=== PATIENT | female | born 1985 | race Two or more races ===

== ENCOUNTER 2016-06-09 23:10 | Emergency (ER) | payer OTHER ==
[~2016-06-09] VITALS: Ht 157.5 cm; Wt 70.3 kg
[~2016-06-09 23:10] MED LIST: BUTA1CAP29 PO; IBUP-1007 PO; METH-37 PO; ONDA4TAB10 SL; PROAIR HFA8.5 GM INH
--- NOTE | 2016-06-09 23:53 | PHYS DOC ---
Past Medical History Past Medical History: Asthma Past Surgical History: Appendectomy, Hysterectomy, Tonsillectomy, Other Additional Past Surgical Histo: PARTIAL HYSTERECTOMY, LYMPH NODES REMOVED IN GROIN Alcohol Use: None Drug Use: None Adult General Chief Complaint Chief Complaint: GI PROBLEM HPI HPI Patient is a 30 year old female who presents with complaints of nausea, vomiting, diarrhea, and abdominal pain. Patient states that her symptoms started yesterday. Patient has had 5-6 episodes of vomiting per day. Patient states that her pain currently is sharp and located near her belly button. Patient denies radiation of pain. Patient states that she has had multiple loose stools. Patient denies any blood in her stools. Patient has had history of hysterectomy and appendectomy. Patient rates her pain currently as 8 out of 10. Patient has not taken any medications to help with her symptoms at this time. Patient denies any sick contacts or exposure to spoiled food. Review of Systems Review of Systems Constitutional: Denies fever or chills [] Eyes: Denies change in visual acuity, redness, or eye pain [] HENT: Sore throat, denies nasal congestion [] Respiratory: Denies cough or shortness of breath [] Cardiovascular: Denies chest pain or edema [] GI: Abdominal pain, nausea, vomiting, diarrhea [] : Denies dysuria or hematuria [] Musculoskeletal: Denies back pain or joint pain [] Integument: Denies rash or skin lesions [] Neurologic: Denies headache, focal weakness or sensory changes [] Current Medications Current Medications Current Medications Medications (Trade) Dose Ordered Sig/Zhao Start Time Stop Time Status Last Admin Dose Admin Famotidine (Pepcid) 20 mg 1X ONCE 06/10/16 00:00 06/10/16 00:01 DC 06/10/16 00:08 20 MG Fentanyl Citrate 50 mcg 50 mcg PRN Q15MIN PRN 06/10/16 00:00 06/10/16 23:59 06/10/16 00:06 50 MCG Ondansetron HCl (Zofran) 4 mg 1X ONCE 06/10/16 00:00 06/10/16 00:01 DC 06/10/16 00:03 4 MG Sodium Chloride (Iv Sodium Chloride 0.9% 1000ml Bag) 1,000 ml @ 1,000 mls/hr Q1H 06/10/16 00:00 06/10/16 00:59 DC 06/10/16 00:01 1,000 MLS/HR Allergies Allergies Allergies Coded Allergies Type Severity Reaction Last Updated Verified Penicillins Allergy Intermediate tolerates Rocephin 11/28/15 Yes erythromycin base Allergy Intermediate tolerates Zithromax 11/28/15 Yes iodine Allergy Intermediate hives 11/28/15 Yes tramadol Allergy Intermediate hives 11/28/15 Yes Physical Exam Physical Exam Constitutional: Alert, afebrile, appears in mild to moderate discomfort. [] HENT: Normocephalic, atraumatic, bilateral external ears normal, oropharynx moist, no oral exudates, nose normal. [] Eyes: PERRLA, EOMI, conjunctiva normal, no discharge. [] Neck: Normal range of motion, no tenderness, supple, no stridor. [] Cardiovascular:Heart rate regular rhythm, no murmur [] Lungs & Thorax: Bilateral breath sounds clear to auscultation [] Abdomen: Bowel sounds normal, soft, tenderness to palpation in all 4 quadrants, no guarding or rebound tenderness, no masses, no pulsatile masses. [] Skin: Warm, dry, no erythema, no rash. [] Back: No tenderness, no CVA tenderness. [] Extremities: No tenderness, no cyanosis, no clubbing, ROM intact, no edema. [] Neurologic: Alert and oriented X 3, normal motor function, normal sensory function, no focal deficits noted. [] Current Patient Data Vital Signs Vital Signs Date Time Temp Pulse Resp B/P Pulse Ox O2 Delivery O2 Flow Rate FiO2 06/10/16 01:24 79 98/64 98 Room Air 06/10/16 00:06 18 06/09/16 23:31 98.5 98.5 Lab Values Laboratory Tests Test 06/09/16 22:33 06/09/16 23:27 06/09/16 23:30 POC Urine HCG, Qualitative Hcg negative (Negative) Urine Collection Type Unknown Urine Color Yellow Urine Clarity Clear Urine pH 5.5 Urine Specific Goodman 1.025 Urine Protein Negativemg/dL (NEG-TRACE) Urine Glucose (UA) Negativemg/dL (NEG) Urine Ketones (Stick) Negativemg/dL (NEG) Urine Blood Negative (NEG) Urine Nitrite Negative (NEG) Urine Bilirubin Negative (NEG) Urine Urobilinogen Dipstick 1.0mg/dL (0.2 mg/dL) Urine Leukocyte Esterase Negative (NEG) Urine RBC 0/HPF (0-2) Urine WBC Occ/HPF (0-4) Urine Squamous Epithelial Cells Many/LPF Urine Bacteria Moderate/HPF (0-FEW) Urine Mucus Mod/LPF White Blood Count 5.9x10^3/uL (4.0-11.0) Red Blood Count 4.45x10^6/uL (3.50-5.40) Hemoglobin 11.9g/dL (12.0-15.5) L Hematocrit 37.1% (36.0-47.0) Mean Corpuscular Volume 83fL (79-100) Mean Corpuscular Hemoglobin 27pg (25-35) Mean Corpuscular Hemoglobin Concent 32g/dL (31-37) Red Cell Distribution Width 12.8% (11.5-14.5) Platelet Count 170x10^3/uL (140-400) Neutrophils (%) (Auto) 46% (31-73) Lymphocytes (%) (Auto) 43% (24-48) Monocytes (%) (Auto) 8% (0-9) Eosinophils (%) (Auto) 2% (0-3) Basophils (%) (Auto) 0% (0-3) Neutrophils # (Auto) 2.7x10^3uL (1.8-7.7) Lymphocytes # (Auto) 2.6x10^3/uL (1.0-4.8) Monocytes # (Auto) 0.5x10^3/uL (0.0-1.1) Eosinophils # (Auto) 0.1x10^3/uL (0.0-0.7) Basophils # (Auto) 0.0x10^3/uL (0.0-0.2) Sodium Level 143mmol/L (136-145) Potassium Level 3.4mmol/L (3.5-5.1) L Chloride Level 104mmol/L (98-107) Carbon Dioxide Level 28mmol/L (21-32) Anion Gap 11 (6-14) Blood Urea Nitrogen 7mg/dL (7-20) Creatinine 0.6mg/dL (0.6-1.0) Estimated GFR (Cockcroft-Gault) 119.0 BUN/Creatinine Ratio 12 (6-20) Glucose Level 88mg/dL (70-99) Calcium Level 8.4mg/dL (8.5-10.1) L Total Bilirubin 0.5mg/dL (0.2-1.0) Aspartate Amino Transferase (AST) 23U/L (15-37) Alanine Aminotransferase (ALT) 30U/L (14-59) Alkaline Phosphatase 96U/L (46-116) Total Protein 7.3g/dL (6.4-8.2) Albumin 4.1g/dL (3.4-5.0) Albumin/Globulin Ratio 1.3 (1.0-1.7) Lipase 72U/L (73-393) L Laboratory Tests 06/09/16 23:30 Laboratory Tests 06/09/16 23:30 EKG EKG Not performed [] Radiology/Procedures Radiology/Procedures Two-view abdominal x-ray interpreted by me: Nonobstructive bowel gas pattern, no free air under the diaphragm [] Course & Med Decision Making Course & Med Decision Making Pertinent Labs and Imaging studies reviewed. (See chart for details) The patient was given IV Zofran, Pepcid, and fentanyl as well as IV fluids. Patient's vital signs are stable. On reevaluation, patient states that her symptoms have improved. Patient's lab work is unremarkable. Patient's symptoms appear consistent with a viral syndrome. The patient will be continued on Bentyl and Zofran for outpatient treatment with recommended follow-up in 3-5 days if symptoms are not improving with primary physician. Advised return emergency department for any worsening symptoms. Patient voiced understanding and in agreement with treatment plan. Dragon Disclaimer Dragon Disclaimer This electronic medical record was generated, in whole or in part, using a voice recognition dictation system. Departure Departure Impression: Primary Impression: Nausea & vomiting Additional Impression: Abdominal pain Disposition: 01 HOME, SELF-CARE Condition: IMPROVED Referrals: NO PCP (PCP) Patient Instructions: Abdominal Pain (Nonspecific), Nausea and Vomiting Additional Instructions: Follow-up with a primary physician in the next 3-5 days if symptoms are not improving. Return to emergency department for any worsening symptoms. Scripts Ondansetron (Zofran Odt)4 Mg Tab.rapdis1 Tab SL Q8HRS PRN NAUSEA/VOMITING #15 TAB Prov:BUNNY DELEON MD 06/10/16 Dicyclomine Hcl (Bentyl)10 Mg Capsule1 Cap PO TID #30 CAP Ref 1 Prov:BUNNY DELEON MD 06/10/16 Problem Qualifiers Primary Impression: Nausea & vomiting Vomiting type: unspecified Vomiting Intractability: non-intractable Qualified Code: R11.2 - Nausea with vomiting, unspecified Additional Impression: Abdominal pain Abdominal location: periumbilical Qualified Code: R10.33 - Periumbilical pain BUNNY DELEON MD Jun 09, 2016 23:53
[2016-06-10] MEDS ORDERED: ONDANSETRON PF 4 MG/2 ML VIAL. IV ONE
[2016-06-10] MEDS ORDERED: FAMOTIDINE 20 MG/2 ML VIAL IVP ONE
[2016-06-10] MEDS ORDERED: IV NORMAL SALINE 1000ML BAG 1,000 ML IV SCH
[2016-06-10] MEDS ORDERED: FENTANYL PF 100 MCG/2 ML VIAL. IV PRN
[2016-06-10 00:02] LABS: BASO % 0 % (0-3); EOS % 2 % (0-3); HEMATOCRIT 37.1 % (36.0-47.0); HEMOGLOBIN 11.9 g/dL (12.0-15.5); LYMPH # 2.6 x10^3/uL (1.0-4.8); LYMPH % 43 % (24-48); MEAN CORPUSCULAR HEMOGLOBIN 27 pg (25-35); MEAN CORPUSCULAR HGB CONC 32 g/dL (31-37); MEAN CORPUSCULAR VOLUME 83 fL (79-100); MONO % 8 % (0-9); NEUT % 46 % (31-73); PLATELET COUNT 170 x10^3/uL (140-400); RED BLOOD COUNT 4.45 x10^6/uL (3.50-5.40); RED CELL DISTRIBUTION WIDTH 12.8 % (11.5-14.5); WHITE BLOOD COUNT 5.9 x10^3/uL (4.0-11.0)
[2016-06-10 00:07] LABS: BILIRUBIN,URINE NEGATIVE (NEG); GLUCOSE,URINE NEGATIVE (NEG); NITRITE,URINE NEGATIVE (NEG); PH,URINE 5.5; PROTEIN,URINE NEGATIVE (NEG-TRACE)
[2016-06-10 00:12] LABS: CALCIUM 8.4 mg/dL (8.5-10.1); CREATININE 0.6 mg/dL (0.6-1.0); POTASSIUM 3.4 mmol/L (3.5-5.1)
[2016-06-10 00:17] LABS: ALBUMIN 4.1 g/dL (3.4-5.0); ALBUMIN/GLOBULIN RATIO 1.3 (1.0-1.7); TOTAL BILIRUBIN 0.5 mg/dL (0.2-1.0); TOTAL PROTEIN 7.3 g/dL (6.4-8.2)
[2016-06-10 00:22] LABS: BACTERIA,URINE MODERATE /HPF (0-FEW); RBC,URINE 0 /HPF (0-2); SQUAMOUS EPITHELIAL CELL,UR MANY /LPF; WBC,URINE OCC /HPF (0-4)
[2016-06-10] MEDS ORDERED: DICY10CA53 PO (02:02)
[2016-06-10] MEDS ORDERED: ONDA4TAB10 SL (02:03)
[2016-06-10 02:20] VITALS: BP 111/66
--- NOTE | 2016-06-10 08:46 | RAD ---
ABDOMEN SUPINE UPRIGHT Clinical Indication: abdominal pain, vomiting Comparison: None. Technique: Upright and supine views of the abdomen are obtained. Findings: No intra-abdominal free air or air-fluid levels are seen on the upright view. No dilated bowel loops are seen to suggest obstruction. Formed fecal material is seen within the colon. No definite renal calculi seen. Visual is osseous structures and surrounding soft tissues demonstrate no acute finding. Visualized lung bases are clear. IMPRESSION: Nonobstructive appearing bowel gas pattern.
== END 2016-06-10 02:23 | disposition home or self-care (01) ==
LOC: ER 23:10
DX: R11.2 Nausea with vomiting, unspecified (principal); R10.9 Unspecified abdominal pain; R19.7 Diarrhea, unspecified; J45.909 Unspecified asthma, uncomplicated; Z90.49 Acquired absence of other specified parts of digestive tract; Z88.0 Allergy status to penicillin; Z90.710 Acquired absence of both cervix and uterus; Z88.1 Allergy status to other antibiotic agents; Z91.041 Radiographic dye allergy status; Z88.5 Allergy status to narcotic agent
CPT/HCPCS: 36415; 74020; 80053; 81001; 81025; 83690; 85027; 87086; 96361; 96374; 96375; 99285; J2405; J3010; J7030; S0028

== ENCOUNTER 2016-11-30 00:08 | Emergency (ER) | payer SELFPAY ==
[~2016-11-30] VITALS: Ht 157.5 cm; Wt 68.0 kg
[~2016-11-30 00:08] MED LIST changes: +DICY10CA53 PO
[2016-11-30 00:20] VITALS: BP 109/68
--- NOTE | 2016-11-30 00:32 | PHYS DOC ---
Past Medical History Past Medical History: Asthma Past Surgical History: Appendectomy, Hysterectomy, Tonsillectomy, Other Additional Past Surgical Histo: PARTIAL HYSTERECTOMY, LYMPH NODES REMOVED IN GROIN Alcohol Use: None Drug Use: None Adult General Chief Complaint Chief Complaint: SKIN PROBLEM HPI HPI Patient is a 31 year old female presents to the emergency department with complaints of a reddened area on the right forearm. She states it began approximately one hour ago. She states she took Benadryl which seemed to make it less red. She has no complaints of pain. She has no injury. Review of Systems Review of Systems Constitutional: Denies fever or chills [] Eyes: Denies change in visual acuity, redness, or eye pain [] HENT: Denies nasal congestion or sore throat [] Respiratory: Denies cough or shortness of breath [] Cardiovascular: No additional information not addressed in HPI [] GI: Denies abdominal pain, nausea, vomiting, bloody stools or diarrhea [] : Denies dysuria or hematuria [] Musculoskeletal: Denies back pain or joint pain [] Integument: Reddened area right forearm Neurologic: Denies headache, focal weakness or sensory changes [] Endocrine: Denies polyuria or polydipsia [] Allergies Allergies Allergies Coded Allergies Type Severity Reaction Last Updated Verified Penicillins Allergy Intermediate tolerates Rocephin 11/28/15 Yes erythromycin base Allergy Intermediate tolerates Zithromax 11/28/15 Yes iodine Allergy Intermediate hives 11/28/15 Yes tramadol Allergy Intermediate hives 11/28/15 Yes Physical Exam Physical Exam Constitutional: Well developed, well nourished, no acute distress, non-toxic appearance. [] HENT: Normocephalic, atraumatic, bilateral external ears normal, oropharynx moist, no oral exudates, nose normal. [] Eyes: PERRLA, EOMI, conjunctiva normal, no discharge. [] Neck: Normal range of motion, no tenderness, supple, no stridor. [] Cardiovascular:Heart rate regular rhythm, no murmur [] Lungs & Thorax: Bilateral breath sounds clear to auscultation [] Abdomen: Bowel sounds normal, soft, no tenderness, no masses, no pulsatile masses. [] Skin: Warm, dry, no erythema, no rash. [] Back: No tenderness, no CVA tenderness. [] Extremities: Right forearm, medial distal to the elbow 4 cm area of light pink skin that is warm to touch without induration, without fluctuance, without vesicles, bullae, papules, pustules. Tender to palpate. There is a small papular lesion that appears to be an insect sting at the lateral edge of the erythema. Neurologic: Alert and oriented X 3, normal motor function, normal sensory function, no focal deficits noted. [] Psychologic: Affect normal, judgement normal, mood normal. [] EKG EKG [] Radiology/Procedures Radiology/Procedures [] Course & Med Decision Making Course & Med Decision Making Pertinent Labs and Imaging studies reviewed. (See chart for details) [] Dragon Disclaimer Dragon Disclaimer This electronic medical record was generated, in whole or in part, using a voice recognition dictation system. Departure Departure Impression: Primary Impression: Allergic reaction Disposition: 01 HOME, SELF-CARE Condition: STABLE Referrals: NO PCP (PCP) [facility] Patient Instructions: Insect Sting Allergy Additional Instructions: The counter Benadryl as labeled and is indicated for symptom management. Problem Qualifiers Primary Impression: Allergic reaction Encounter type: initial encounter Qualified Codes: T78.40XA - Allergy, unspecified, initial encounter YVONNE ECHEVARRIA APRN Nov 30, 2016 00:32
[2016-11-30] MEDS ORDERED: methylPREDNISolone ACETATE 40 MG/ML VIAL. IM ONE (00:45)
== END 2016-11-30 00:56 | disposition home or self-care (01) ==
LOC: ER 00:08
DX: T78.40XA Allergy, unspecified, initial encounter (principal); J45.909 Unspecified asthma, uncomplicated; Z88.0 Allergy status to penicillin; Z88.1 Allergy status to other antibiotic agents; Z88.5 Allergy status to narcotic agent; Z88.8 Allergy status to other drugs, medicaments and biological substances; X58.XXXA Exposure to other specified factors, initial encounter
CPT/HCPCS: 96372; 99283; J1030

== ENCOUNTER 2018-01-23 15:05 | Emergency (ER) | payer SELFPAY ==
[~2018-01-23] VITALS: Ht 157.5 cm; Wt 68.0 kg
[2018-01-23 15:36] VITALS: BP 130/59
[2018-01-23] MEDS ORDERED: predniSONE 10 MG TABLET PO ONE (16:00)
[2018-01-23] MEDS ORDERED: ALBUTEROL SULFATE 2.5 MG/3 ML NEBU. NEB ONE (16:00)
[2018-01-23] MEDS ORDERED: PRED50TA PO (16:40)
[2018-01-23] MEDS ORDERED: CYCL10TA2 PO (16:40)
[2018-01-23] MEDS ORDERED: PROAIR HFA8.5 GM INH (16:40)
--- NOTE | 2018-01-23 16:40 | PHYS DOC ---
Past Medical History Past Medical History: Asthma Past Surgical History: Appendectomy, Hysterectomy, Tonsillectomy, Other Additional Past Surgical Histo: PARTIAL HYSTERECTOMY, LYMPH NODES REMOVED IN GROIN Alcohol Use: None Drug Use: None Adult General Chief Complaint Chief Complaint: KAILYN HPI HPI Patient is a 32 year old presents to the emergency department with complaints of right shoulder pain that radiates to her back for the last 2 days. She denies any known injury states that the pain is exacerbated by movement and deep breathing. 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 She denies any numbness, weakness, or tingling of the right upper extremity. In addition, patient reports pain in her chest with deep breath and cough. She denies any fever, nausea, vomiting, diarrhea, abdominal pain, or congestion. Patient states that nothing has helped to make her pain better, she has tried taking ibuprofen. Review of Systems Review of Systems Constitutional: Denies fever or chills [] HENT: Denies nasal congestion or sore throat [] Respiratory: See history of present illness Cardiovascular: Denies palpitations, reports pain with inspiration GI: Denies abdominal pain, nausea, vomiting, or diarrhea [] Musculoskeletal: See history of present illness Integument: Denies rash or skin lesions [] Neurologic: Denies headache, focal weakness or sensory changes [] All other systems were reviewed and found to be within normal limits, except as documented in this note. Current Medications Current Medications Current Medications Medications (Trade) Dose Ordered Sig/Zhao Start Time Stop Time Status Last Admin Dose Admin Albuterol Sulfate (Ventolin Neb Soln) 2.5 mg 1X ONCE 01/23/18 16:00 01/23/18 16:01 DC 01/23/18 16:16 2.5 MG Orphenadrine Citrate (Norflex) 60 mg 1X ONCE 01/23/18 16:45 01/23/18 16:46 DC 01/23/18 16:45 60 MG Prednisone (Prednisone) 50 mg 1X ONCE 01/23/18 16:00 01/23/18 16:01 DC 01/23/18 16:05 50 MG Allergies Allergies Allergies Coded Allergies Type Severity Reaction Last Updated Verified Penicillins Allergy Intermediate tolerates Rocephin 11/28/15 Yes erythromycin base Allergy Intermediate tolerates Zithromax 11/28/15 Yes iodine Allergy Intermediate hives 11/28/15 Yes tramadol Allergy Intermediate hives 11/28/15 Yes Physical Exam Physical Exam Constitutional: Well developed, well nourished, no acute distress, non-toxic appearance. [] HENT: Normocephalic, atraumatic, bilateral external ears normal, oropharynx moist, no oral exudates, nose normal. [] Eyes: conjunctiva normal, no discharge. [] Neck: Normal range of motion, no tenderness, supple, no stridor. [] Cardiovascular:Heart rate regular rhythm, no murmur [] Lungs & Thorax: Bilateral breath sounds clear to auscultation, reproducible chest tenderness with palpation[] Skin: Warm, dry, no erythema, no rash. [] Extremities: No bony tenderness, no cyanosis, no clubbing, limited ROM R shoulder due to pain intolerance, no edema. [] Neurologic: Alert and oriented X 3, normal motor function, normal sensory function, no focal deficits noted. [] Psychologic: Affect normal, judgement normal, mood normal. [] Current Patient Data Vital Signs Vital Signs Date Time Temp Pulse Resp B/P (MAP) Pulse Ox O2 Delivery O2 Flow Rate FiO2 01/23/18 15:36 98.1 81 20 130/59 (82) 99 Room Air 98.1 EKG EKG [] Radiology/Procedures Radiology/Procedures [] Course & Med Decision Making Course & Med Decision Making Pertinent Labs and Imaging studies reviewed. (See chart for details) [] Staff Physician Addendum: I was working in the ER during the course of this patient's visit. I was available for consultation as needed, but I was not directly involved in the care of this patient. Jarrod Disclaimer Jarrod Disclaimer This electronic medical record was generated, in whole or in part, using a voice recognition dictation system. Departure Departure Impression: Primary Impression: Costochondritis, acute Additional Impression: Cervical radiculopathy, acute Disposition: 01 HOME, SELF-CARE Condition: STABLE Referrals: NO PCP (PCP) Patient Instructions: Cervical Radiculopathy, [id number], Costochondritis, [id number] Additional Instructions: Fill prescriptions and use as directed. Use the [facility] for discounted rates on your medication. Activity as tolerated Recommend a cool mist humidifier in room at bedtime. Tylenol or ibuprofen prn pain/fever. Increase clear fluids. Avoid triggers such as smoke, fragrance, dust, and pollen. May take OTC cough suppressants as needed. Follow-up with your primary care doctor if symptoms persist, return to the ER if symptoms worsen. Scripts Albuterol Sulfate (PROAIR HFA INHALER) 8.5 Gm Hfa.aer.ad 1-2 PUFF INH PRN Q6HRS PRN for SHORTNESS OF BREATH for 10 Days, #1 INHALER 0 Refills Prov: DIMA YORK APRN 01/23/18 Prednisone (PREDNISONE) 50 Mg Tablet 1 TAB PO DAILY, #5 TAB 0 Refills Prov: DIMA YORK APRN 01/23/18 Cyclobenzaprine Hcl (CYCLOBENZAPRINE HCL) 10 Mg Tablet 1 TAB PO TID PRN for PAIN for 7 Days, #21 TAB 0 Refills Prov: DIMA YORK APRN 01/23/18 Problem Qualifiers DIMA YORK APRN Jan 23, 2018 16:40 LESLI GOOD MD Jan 25, 2018 01:14
[2018-01-23] MEDS ORDERED: ORPHENADRINE CITRATE 60 MG/2 ML VIAL. IM ONE (16:45)
== END 2018-01-23 16:48 | disposition home or self-care (01) ==
LOC: ER 15:05
DX: M94.0 Chondrocostal junction syndrome [Tietze] (principal); M54.12 Radiculopathy, cervical region; J45.909 Unspecified asthma, uncomplicated; M25.511 Pain in right shoulder; Z90.89 Acquired absence of other organs; Z90.710 Acquired absence of both cervix and uterus; Z88.0 Allergy status to penicillin; Z88.5 Allergy status to narcotic agent; Z88.1 Allergy status to other antibiotic agents; Z91.041 Radiographic dye allergy status
CPT/HCPCS: 94640; 96372; 99283; J2360; J7512; J7613

== ENCOUNTER 2019-02-19 07:19 | Emergency (ER) | payer SELFPAY ==
[~2019-02-19] VITALS: Ht 157.5 cm; Wt 59.5 kg
[~2019-02-19 07:19] MED LIST changes: +ALBU2.5V8 INH; +CYCL10TA2 PO; +PRED50TA PO; -PROAIR HFA8.5 GM INH
[2019-02-19 07:22] VITALS: BP 98/55
[2019-02-19 07:57] LABS: INFLUENZA A PATIENT NEGATIVE (NEGATIVE); INFLUENZA B PATIENT NEGATIVE (NEGATIVE)
[2019-02-19] MEDS ORDERED: IPRATRPIUM/ALBUTEROL 0.5/2.5MG 3 ML NEBU. NEB ONE (08:45)
[2019-02-19] MEDS ORDERED: BENZONATATE 100 MG CAPSULE. PO ONE (08:45)
[2019-02-19] MEDS ORDERED: ALBU2.5V5 NEB (08:54)
[2019-02-19] MEDS ORDERED: BENZ100C PO (08:54)
--- NOTE | 2019-02-19 08:54 | PHYS DOC ---
Past Medical History Past Medical History: Asthma Past Surgical History: Appendectomy, Hysterectomy, Tonsillectomy, Other Additional Past Surgical Histo: PARTIAL HYSTERECTOMY, LYMPH NODES REMOVED IN GROIN Alcohol Use: Occasionally Drug Use: None Adult General Chief Complaint Chief Complaint: FLU SYMPTOM HPI HPI Patient is a 33 year old patient with history of asthma who presents with rate of flulike symptom. Patient complaining of cough and congestion, sore throat, myalgia and shortness of breath for the last 3 days. Patient had sick contacts at home. She denies vomiting and diarrhea, chest pain, . Review of Systems Review of Systems Constitutional: Denies fever or chills [] Eyes: Denies change in visual acuity, redness, or eye pain [] HENT: Reports nasal congestion and sore throat Respiratory: Reports cough and shortness of breath Cardiovascular: No additional information not addressed in HPI [] GI: Denies abdominal pain, nausea, vomiting, bloody stools or diarrhea [] : Denies dysuria or hematuria [] Musculoskeletal: Denies back pain or joint pain [] Integument: Denies rash or skin lesions [] Neurologic: Denies headache, focal weakness or sensory changes [] Endocrine: Denies polyuria or polydipsia [] All other systems were reviewed and found to be within normal limits, except as documented in this note. Current Medications Current Medications Current Medications Medications (Trade) Dose Ordered Sig/Zhao Start Time Stop Time Status Last Admin Dose Admin Albuterol/ Ipratropium (Duoneb) 3 ml 1X ONCE 02/19/19 08:45 02/19/19 08:46 DC 02/19/19 08:34 3 ML Benzonatate (Tessalon Perle) 100 mg 1X ONCE 02/19/19 08:45 02/19/19 08:46 DC 02/19/19 08:26 100 MG Allergies Allergies Allergies Coded Allergies Type Severity Reaction Last Updated Verified Penicillins Allergy Intermediate tolerates Rocephin 11/28/15 Yes erythromycin base Allergy Intermediate tolerates Zithromax 11/28/15 Yes iodine Allergy Intermediate hives 11/28/15 Yes tramadol Allergy Intermediate hives 11/28/15 Yes Physical Exam Physical Exam Constitutional: Well developed, well nourished, mild distress, non-toxic appearance. [] HENT: Normocephalic, atraumatic, bilateral external ears normal, oropharynx moist, pharyngeal erythema, no oral exudates, nose normal. [] Eyes: PERRLA, EOMI, conjunctiva normal, no discharge. [] Neck: Normal range of motion, no tenderness, supple, no stridor. [] Cardiovascular:Heart rate regular rhythm, no murmur [] Lungs & Thorax: Bilateral breath sounds clear to auscultation [] Abdomen: Bowel sounds normal, soft, no tenderness, no masses, no pulsatile masses. [] Skin: Warm, dry, no erythema, no rash. [] Back: No tenderness, no CVA tenderness. [] Extremities: No tenderness, no cyanosis, no clubbing, ROM intact, no edema. [] Neurologic: Alert and oriented X 3, normal motor function, normal sensory function, no focal deficits noted. [] Psychologic: Affect normal, judgement normal, mood normal. [] Current Patient Data Vital Signs Vital Signs Date Time Temp Pulse Resp B/P (MAP) Pulse Ox O2 Delivery O2 Flow Rate FiO2 02/19/19 08:34 Room Air 02/19/19 07:22 98.4 86 20 98/55 (69) 96 98.4 Lab Values Laboratory Tests Test 02/19/19 07:30 02/19/19 08:30 Influenza Type A Antigen Negative (NEGATIVE) Influenza Type B Antigen Negative (NEGATIVE) Group A Streptococcus Rapid Negative (NEGATIVE) EKG EKG [] Radiology/Procedures Radiology/Procedures [] Course & Med Decision Making Course & Med Decision Making Pertinent Labs reviewed. (See chart for details) discharge: I've spoken with the patient and/or caregivers. I've explained the patient's condition, diagnosis and treatment plan based on information available to me at this time. I've answered the patient's and/or caregivers questions and addressed any concerns. The patient and/or caregivers have a good understanding the patient's diagnosis, condition and treatment plan as can be expected at this point. Vital signs have been stabilized. The patient's condition is stable for discharge from the emergency department. The patient will pursue further outpatient evaluation with her primary care provider or other designated consulting physician as outlined in the discharge instructions. Patient and/or caregivers are agreeable to this plan of care and follow-up instructions have been explained in detail. The patient and/or caregivers have received these instructions in written format and expressed understanding of these discharge instructions. The patient and her caregivers are aware that if any significant change in condition or worsening of symptoms should prompt him to immediately return to this of the closest emergency department. If an emergent department is not readily available I would encourage him to call 911. Jarrod Disclaimer Jarrod Disclaimer This electronic medical record was generated, in whole or in part, using a voice recognition dictation system. Departure Departure Impression: Primary Impression: Viral URI with cough Disposition: HOME, SELF-CARE (at 0850) Condition: IMPROVED Referrals: NO PCP (PCP) Patient Instructions: Cough, Adult, Upper Respiratory Infection, Adult Additional Instructions: Drink plenty of liquids Follow-up with your primary care physician in 3-5 days Return to ER if not getting better Quit smoking Thank you for visiting [facility]. We appreciate you trusting us with your care. If any additional problems come up don't hesitate to return to visit us. Please follow up with your primary care provider so they can plan additional care if needed and know about the problem that you had. If symptoms worsen come back to the Emergency Department. Any concerning symptoms that start such as chest pain, shortness of air, weakness or numbness on one side of the body, running high fevers or any other concerning symptoms return to the ER. Scripts Benzonatate (TESSALON PERLE) 100 Mg Capsule 1 CAP PO TID for cough, #21 CAP Prov: LUCRECIA GAMBINO MD 02/19/19 Albuterol Sulfate (ALBUTEROL SULFATE NEB SOLN) 2.5 Mg/3 Ml Vial.neb 1 VIAL NEB Q6HRS PRN for SHORTNESS OF BREATH, #25 VIAL Prov: LUCRECIA GAMBINO MD 02/19/19 LUCRECIA GAMBINO MD Feb 19, 2019 08:54
== END 2019-02-19 09:20 | disposition home or self-care (01) ==
LOC: ER 07:19
DX: J06.9 Acute upper respiratory infection, unspecified (principal); B97.89 Other viral agents as the cause of diseases classified elsewhere; J45.909 Unspecified asthma, uncomplicated; Z88.0 Allergy status to penicillin; Z88.1 Allergy status to other antibiotic agents; Z88.6 Allergy status to analgesic agent; Z88.8 Allergy status to other drugs, medicaments and biological substances
CPT/HCPCS: 87070; 87804; 87880; 94640; 99284; J7620

== ENCOUNTER 2019-04-22 18:31 | Emergency (ER) | payer SELFPAY ==
[~2019-04-22] VITALS: Ht 157.5 cm; Wt 68.0 kg
[~2019-04-22 18:31] MED LIST changes: +ALBU2.5V5 NEB; +BENZ100C PO
[2019-04-22] MEDS ORDERED: IV NORMAL SALINE 1000ML BAG 1,000 ML IV SCH (20:16)
[2019-04-22 20:24] LABS: BILIRUBIN,URINE NEGATIVE (NEG); CLARITY,URINE CLEAR; COLOR,URINE YELLOW; NITRITE,URINE NEGATIVE (NEG); PH,URINE 6.5; PROTEIN,URINE NEGATIVE (NEG-TRACE)
[2019-04-22] MEDS ORDERED: fentaNYL PF VIAL 100 MCG/2 ML VIAL IV ONE (20:30)
[2019-04-22] MEDS ORDERED: ONDANSETRON PF 4 MG/2 ML VIAL. IV ONE (20:30)
[2019-04-22 20:38] LABS: BACTERIA,URINE MODERATE /HPF (0-FEW); RBC,URINE >40 /HPF (0-2); SQUAMOUS EPITHELIAL CELL,UR MANY /LPF
--- NOTE | 2019-04-22 20:38 | PHYS DOC ---
Past Medical History Past Medical History: Asthma ([facility] ARBOLEDA APRN) Past Surgical History: Appendectomy, Hysterectomy, Tonsillectomy, Other Additional Past Surgical Histo: PARTIAL HYSTERECTOMY, LYMPH NODES REMOVED IN GROIN ([facility] ARBOLEDA APRN) Smoking Status: Current Every Day Smoker Alcohol Use: Occasionally Drug Use: None ([facility] ARBOLEDA APRN) Attending Signature I have participated in the care of this patient and I have reviewed and agree with all pertinent clinical information above including history, exam, and recommendations. (GERARDO MORSE MD) Adult General Chief Complaint Chief Complaint: ABDOMINAL PAIN HPI HPI Patient is a 33 year old female who presents with 2 days ago began having bilateral low back pain and today it started to radiate around to the lower pelvis. She states 9 out of 10 and throbbing. Patient denies nausea, vomiting, diarrhea, dysuria, vaginal discharge, STD concerns, injury, doing any new activities or strenuous activities that she could've pulled a muscle. States she's had a decreased appetite and at home she had a 99.9 temperature. She states before she came she took ibuprofen 800 mg. Patient decorates cakes for living. Patient has had a partial hysterectomy and just has her ovaries. ([facility] ARBOLEDA APRN) Review of Systems Review of Systems Constitutional: fever or chills [] GI: Low abdominal pain, denies nausea, vomiting, bloody stools or diarrhea [] Musculoskeletal: Lateral low paraspinal back pain or joint pain [] All other systems were reviewed and found to be within normal limits, except as documented in this note. ([facility] ARBOLEDA APRN) Current Medications Current Medications Current Medications Medications (Trade) Dose Ordered Sig/[facility] Start Time Stop Time Status Last Admin Dose Admin Fentanyl Citrate (Fentanyl 2ml Vial) 50 mcg 1X ONCE 04/22/19 20:30 04/22/19 20:31 DC 04/22/19 20:30 50 MCG Ondansetron HCl (Zofran) 4 mg 1X ONCE 04/22/19 20:30 04/22/19 20:31 DC 04/22/19 20:30 4 MG Sodium Chloride 1,000 ml @ 1,000 mls/hr Q1H 04/22/19 20:16 04/22/19 21:15 DC 04/22/19 20:16 1,000 MLS/HR (GERARDO MORSE MD) Allergies Allergies Allergies Coded Allergies Type Severity Reaction Last Updated Verified Penicillins Allergy Intermediate tolerates Rocephin 11/28/15 Yes erythromycin base Allergy Intermediate tolerates Zithromax 11/28/15 Yes iodine Allergy Intermediate hives 11/28/15 Yes tramadol Allergy Intermediate hives 11/28/15 Yes (GERARDO MORSE MD) Physical Exam Physical Exam Constitutional: Well developed, well nourished, no acute distress, non-toxic appearance. [] HENT: Normocephalic, atraumatic, bilateral external ears normal, oropharynx judit st, no oral exudates, nose normal. [] Eyes: PERRLA, EOMI, conjunctiva normal, no discharge. [] Neck: Normal range of motion, no tenderness, supple, no stridor. [] Cardiovascular:Heart rate regular rhythm, no murmur [] Lungs & Thorax: Bilateral breath sounds clear to auscultation [] Abdomen: Bowel sounds normal, soft, low abdomen tenderness, no masses, no pulsatile masses. [] Skin: Warm, dry, no erythema, no rash. [] Back: Bilateral paraspinal tenderness, no CVA tenderness. [] Extremities: No tenderness, no cyanosis, no clubbing, ROM intact, no edema. [] Neurologic: Alert and oriented X 3, normal motor function, normal sensory function, no focal deficits noted. [] Psychologic: Affect normal, judgement normal, mood normal. [] ([facility] ARBOLEDA APRN) Current Patient Data Vital Signs Vital Signs Date Time Temp Pulse Resp B/P (MAP) Pulse Ox O2 Delivery O2 Flow Rate FiO2 04/22/19 21:38 62 18 100/60 (73) 99 Room Air 04/22/19 19:45 98.5 98.5 (GERARDO MORSE MD) Lab Values Laboratory Tests Test 04/22/19 19:30 04/22/19 20:35 Urine Collection Type Unknown Urine Color Yellow Urine Clarity Clear Urine pH 6.5 Urine Specific Wilson 1.015 Urine Protein Negative mg/dL (NEG-TRACE) Urine Glucose (UA) Negative mg/dL (NEG) Urine Ketones (Stick) Negative mg/dL (NEG) Urine Blood Large (NEG) Urine Nitrite Negative (NEG) Urine Bilirubin Negative (NEG) Urine Urobilinogen Dipstick 4.0 mg/dL (0.2 mg/dL) Urine Leukocyte Esterase Negative (NEG) Urine RBC >40 /HPF (0-2) Urine WBC 5-10 /HPF (0-4) Urine Squamous Epithelial Cells Many /LPF Urine Bacteria Moderate /HPF (0-FEW) Urine Mucus Mod /LPF Urine Test Negative (NEG) White Blood Count 5.3 x10^3/uL (4.0-11.0) Red Blood Count 4.49 x10^6/uL (3.50-5.40) Hemoglobin 12.6 g/dL (12.0-15.5) Hematocrit 38.1 % (36.0-47.0) Mean Corpuscular Volume 85 fL (79-100) Mean Corpuscular Hemoglobin 28 pg (25-35) Mean Corpuscular Hemoglobin Concent 33 g/dL (31-37) Red Cell Distribution Width 13.2 % (11.5-14.5) Platelet Count 182 x10^3/uL (140-400) Neutrophils (%) (Auto) 46 % (31-73) Lymphocytes (%) (Auto) 42 % (24-48) Monocytes (%) (Auto) 9 % (0-9) Eosinophils (%) (Auto) 2 % (0-3) Basophils (%) (Auto) 1 % (0-3) Neutrophils # (Auto) 2.4 x10^3/uL (1.8-7.7) Lymphocytes # (Auto) 2.2 x10^3/uL (1.0-4.8) Monocytes # (Auto) 0.5 x10^3/uL (0.0-1.1) Eosinophils # (Auto) 0.1 x10^3/uL (0.0-0.7) Basophils # (Auto) 0.0 x10^3/uL (0.0-0.2) Prothrombin Time 13.5 SEC (11.7-14.0) Prothrombin Time INR 1.1 (0.8-1.1) Sodium Level 139 mmol/L (136-145) Potassium Level 4.0 mmol/L (3.5-5.1) Chloride Level 106 mmol/L (98-107) Carbon Dioxide Level 25 mmol/L (21-32) Anion Gap 8 (6-14) Blood Urea Nitrogen 10 mg/dL (7-20) Creatinine 0.6 mg/dL (0.6-1.0) Estimated GFR (Cockcroft-Gault) 116.6 BUN/Creatinine Ratio 17 (6-20) Glucose Level 92 mg/dL (70-99) Calcium Level 8.2 mg/dL (8.5-10.1) L Total Bilirubin 0.5 mg/dL (0.2-1.0) Aspartate Amino Transferase (AST) 33 U/L (15-37) Alanine Aminotransferase (ALT) 24 U/L (14-59) Alkaline Phosphatase 93 U/L (46-116) Total Protein 6.4 g/dL (6.4-8.2) Albumin 3.5 g/dL (3.4-5.0) Albumin/Globulin Ratio 1.2 (1.0-1.7) Laboratory Tests 04/22/19 20:35 Laboratory Tests 04/22/19 20:35 (GERARDO MORSE MD) Lab Values Laboratory Tests Test 04/22/19 19:30 04/22/19 20:35 Urine Collection Type Unknown Urine Color Yellow Urine Clarity Clear Urine pH 6.5 Urine Specific Wilson 1.015 Urine Protein Negative mg/dL (NEG-TRACE) Urine Glucose (UA) Negative mg/dL (NEG) Urine Ketones (Stick) Negative mg/dL (NEG) Urine Blood Large (NEG) Urine Nitrite Negative (NEG) Urine Bilirubin Negative (NEG) Urine Urobilinogen Dipstick 4.0 mg/dL (0.2 mg/dL) Urine Leukocyte Esterase Negative (NEG) Urine RBC >40 /HPF (0-2) Urine WBC 5-10 /HPF (0-4) Urine Squamous Epithelial Cells Many /LPF Urine Bacteria Moderate /HPF (0-FEW) Urine Mucus Mod /LPF White Blood Count 5.3 x10^3/uL (4.0-11.0) Red Blood Count 4.49 x10^6/uL (3.50-5.40) Hemoglobin 12.6 g/dL (12.0-15.5) Hematocrit 38.1 % (36.0-47.0) Mean Corpuscular Volume 85 fL (79-100) Mean Corpuscular Hemoglobin 28 pg (25-35) Mean Corpuscular Hemoglobin Concent 33 g/dL (31-37) Red Cell Distribution Width 13.2 % (11.5-14.5) Platelet Count 182 x10^3/uL (140-400) Neutrophils (%) (Auto) 46 % (31-73) Lymphocytes (%) (Auto) 42 % (24-48) Monocytes (%) (Auto) 9 % (0-9) Eosinophils (%) (Auto) 2 % (0-3) Basophils (%) (Auto) 1 % (0-3) Neutrophils # (Auto) 2.4 x10^3/uL (1.8-7.7) Lymphocytes # (Auto) 2.2 x10^3/uL (1.0-4.8) Monocytes # (Auto) 0.5 x10^3/uL (0.0-1.1) Eosinophils # (Auto) 0.1 x10^3/uL (0.0-0.7) Basophils # (Auto) 0.0 x10^3/uL (0.0-0.2) Prothrombin Time 13.5 SEC (11.7-14.0) Prothrombin Time INR 1.1 (0.8-1.1) Sodium Level 139 mmol/L (136-145) Potassium Level 4.0 mmol/L (3.5-5.1) Chloride Level 106 mmol/L (98-107) Carbon Dioxide Level 25 mmol/L (21-32) Anion Gap 8 (6-14) Blood Urea Nitrogen 10 mg/dL (7-20) Creatinine 0.6 mg/dL (0.6-1.0) Estimated GFR (Cockcroft-Gault) 116.6 BUN/Creatinine Ratio 17 (6-20) Glucose Level 92 mg/dL (70-99) Calcium Level 8.2 mg/dL (8.5-10.1) L Total Bilirubin 0.5 mg/dL (0.2-1.0) Aspartate Amino Transferase (AST) 33 U/L (15-37) Alanine Aminotransferase (ALT) 24 U/L (14-59) Alkaline Phosphatase 93 U/L (46-116) Total Protein 6.4 g/dL (6.4-8.2) Albumin 3.5 g/dL (3.4-5.0) Albumin/Globulin Ratio 1.2 (1.0-1.7) Laboratory Tests 04/22/19 20:35 Laboratory Tests 04/22/19 20:35 ([facility] ARBOLEDA APRN) EKG EKG [] ([facility] ARBOLEDA APRN) Radiology/Procedures Radiology/Procedures [] ([facility] ARBOLEDA APRN) Impressions: [facility] [address] [place] [address] IMAGING REPORT Signed PATIENT: DEEPA SANCHEZ ACCOUNT: [id number] : 1985 LOCATION: ER AGE: 33 SEX: F EXAM STATUS: REG ER ORD. PHYSICIAN: [facility] ARBOLEDA APRN REASON: bilateral back pain radiating down into pelvis PROCEDURE: CT ABDOMEN PELVIS WO CONTRAST Examination: CT abdomen pelvis without contrast HISTORY: History of back pain radiating into the pelvis COMPARISON: 05/14/2015 TECHNIQUE: Axial CT images of the abdomen pelvis were performed without contrast. Coronal and sagittal reformats are performed Exposure: One or more of the following individualized dose reduction techniques were utilized for this examination: 1. Automated exposure control 2. Adjustment of the mA and/or kV according to patient size 3. Use of iterative reconstruction technique FINDINGS: The bibasilar lungs are clear. No evidence of free air identified in the abdomen. The evaluation of the solid organs is limited due to lack of IV contrast. The evaluation of bowel is limited due to lack of oral contrast. The visualized noncontrasted liver, spleen, adrenals grossly appears unremarkable. Gallbladder is mildly distended. The stomach is mildly distended with visualized pancreas grossly appears unremarkable. The small bowel is nondilated. Surgical changes of appendectomy identified. Feces and gas noted in the colon. No evidence of intrarenal collecting system calculi or hydronephrosis. The urinary bladder is mildly distended.. No evidence of lytic bony destructive lesion. IMPRESSION: No acute intra-abdominal findings. Electronically signed by: Eliezer Torres MD (04/22/2019 9:04 PM) [id number] DICTATED and SIGNED BY: ELIEZER TORRES MD DATE: 04/22/192103 ([facility] ARBOLEDA APRN) Course & Med Decision Making Course & Med Decision Making Pertinent Labs and Imaging studies reviewed. (See chart for details) Bilateral lower lumbar back paraspinal is tender with palpation there is no bruising or deformity or injury seen. Patient also has bilateral lower abdominal tenderness with palpation. Abdomen is otherwise soft and nontender. Alert and oriented. Speaks in full clear sentences. Skin pink warm and dry. Ambulatory with a steady gait. Vital signs within normal limits. She does state that her back pain does hurt worse with movement. Afebrile in the ED. Blood work is unremarkable. Patient's urine does have blood and it is also contaminated and there are some white blood cells. CT showed no acute findings. Due to the patient's symptoms and low-grade fever and having blood in her urine I will go ahead and treat her for urinary tract infection but she needs to follow up with a primary care provider. [] (MC ARBOLEDA APRN) Dragon Disclaimer Dragon Disclaimer This electronic medical record was generated, in whole or in part, using a voice recognition dictation system. (MC ARBOLEDA APRN) Departure Departure Impression: Primary Impression: Back pain Additional Impression: Abdominal pain Disposition: HOME, SELF-CARE Condition: STABLE Referrals: NO PCP (PCP) Patient Instructions: Urinary Tract Infection Additional Instructions: Follow-up with a primary care provider. Take medication as prescribed. Drink plenty of fluids. Continue taking ibuprofen for your pain. Scripts Orphenadrine Citrate (ORPHENADRINE CITRATE) 100 Mg Tablet.er 1 TAB PO BID, #20 TAB Prov: [facility] ARBOLEDA APRN 04/22/19 Nitrofurantoin Monohyd/M-Cryst (MACROBID 100 MG CAPSULE) 100 Mg Capsule 1 CAP PO BID for 7 Days, #14 CAP 0 Refills Prov: MC ARBOLEDA APRN 04/22/19 Problem Qualifiers Primary Impression: Back pain Back pain location: low back pain Chronicity: acute Back pain laterality: bilateral Sciatica presence: without sciatica Qualified Codes: M54.5 - Low back pain Additional Impression: Abdominal pain Abdominal location: lower abdomen, unspecified Qualified Codes: R10.30 - Lower abdominal pain, unspecified MC ARBOLEDA APRN Apr 22, 2019 20:38 GERARDO MORSE MD Apr 22, 2019 23:34
[2019-04-22 20:42] LABS: BASO % 1 % (0-3); EOS # 0.1 x10^3/uL (0.0-0.7); EOS % 2 % (0-3); HEMATOCRIT 38.1 % (36.0-47.0); HEMOGLOBIN 12.6 g/dL (12.0-15.5); LYMPH # 2.2 x10^3/uL (1.0-4.8); LYMPH % 42 % (24-48); MEAN CORPUSCULAR HEMOGLOBIN 28 pg (25-35); MEAN CORPUSCULAR HGB CONC 33 g/dL (31-37); MEAN CORPUSCULAR VOLUME 85 fL (79-100); MONO # 0.5 x10^3/uL (0.0-1.1); MONO % 9 % (0-9); NEUT # 2.4 x10^3/uL (1.8-7.7); NEUT % 46 % (31-73); PLATELET COUNT 182 x10^3/uL (140-400); RED BLOOD COUNT 4.49 x10^6/uL (3.50-5.40); RED CELL DISTRIBUTION WIDTH 13.2 % (11.5-14.5); WHITE BLOOD COUNT 5.3 x10^3/uL (4.0-11.0)
[2019-04-22 20:51] LABS: PROTHROMBIN TIME PATIENT 13.5 SEC (11.7-14.0)
[2019-04-22 20:52] LABS: CALCIUM 8.2 mg/dL (8.5-10.1); CREATININE 0.6 mg/dL (0.6-1.0); GFR 116.6
[2019-04-22 20:57] LABS: ALBUMIN 3.5 g/dL (3.4-5.0); ALBUMIN/GLOBULIN RATIO 1.2 (1.0-1.7); TOTAL BILIRUBIN 0.5 mg/dL (0.2-1.0); TOTAL PROTEIN 6.4 g/dL (6.4-8.2)
--- NOTE | 2019-04-22 21:07 | RAD ---
Examination: CT abdomen pelvis without contrast HISTORY: History of back pain radiating into the pelvis COMPARISON: 05/14/2015 TECHNIQUE: Axial CT images of the abdomen pelvis were performed without contrast. Coronal and sagittal reformats are performed Exposure: One or more of the following individualized dose reduction techniques were utilized for this examination: 1. Automated exposure control 2. Adjustment of the mA and/or kV according to patient size 3. Use of iterative reconstruction technique FINDINGS: The bibasilar lungs are clear. No evidence of free air identified in the abdomen. The evaluation of the solid organs is limited due to lack of IV contrast. The evaluation of bowel is limited due to lack of oral contrast. The visualized noncontrasted liver, spleen, adrenals grossly appears unremarkable. Gallbladder is mildly distended. The stomach is mildly distended with visualized pancreas grossly appears unremarkable. The small bowel is nondilated. Surgical changes of appendectomy identified. Feces and gas noted in the colon. No evidence of intrarenal collecting system calculi or hydronephrosis. The urinary bladder is mildly distended.. No evidence of lytic bony destructive lesion. IMPRESSION: No acute intra-abdominal findings. Electronically signed by: Eliezer Torres MD (04/22/2019 9:04 PM) [id number]
[2019-04-22] MEDS ORDERED: ORPH100T PO (21:17)
[2019-04-22] MEDS ORDERED: NITR100C62 PO (21:17)
[2019-04-22 21:32] LABS: U PREG PATIENT NEGATIVE (NEG)
[2019-04-22 21:38] VITALS: BP 100/60
== END 2019-04-22 22:02 | disposition home or self-care (01) ==
LOC: ER 18:31
DX: M54.5 Low back pain (principal); R10.30 Lower abdominal pain, unspecified; R50.9 Fever, unspecified; J45.909 Unspecified asthma, uncomplicated; F17.200 Nicotine dependence, unspecified, uncomplicated; Z90.49 Acquired absence of other specified parts of digestive tract; Z90.89 Acquired absence of other organs; Z90.710 Acquired absence of both cervix and uterus; Z98.890 Other specified postprocedural states; Z88.1 Allergy status to other antibiotic agents; Z88.0 Allergy status to penicillin; Z88.2 Allergy status to sulfonamides
CPT/HCPCS: 36415; 74176; 80053; 81001; 81025; 85025; 85610; 87086; 96374; 96375; 99285; J2405; J3010; J7030

== ENCOUNTER 2020-06-16 20:22 | Emergency (ER) | payer SELFPAY ==
[~2020-06-16] VITALS: Ht 157.5 cm; Wt 72.7 kg
[~2020-06-16 20:22] MED LIST changes: +NITR100C62 PO; +ORPH100T PO
[2020-06-16 20:26] VITALS: BP 107/74
--- NOTE | 2020-06-16 20:54 | PHYS DOC ---
Past Medical History Past Medical History: Asthma Past Surgical History: Appendectomy, Hysterectomy, Tonsillectomy, Other Additional Past Surgical Histo: PARTIAL HYSTERECTOMY, LYMPH NODES REMOVED IN GROIN Smoking Status: Current Every Day Smoker Alcohol Use: Occasionally Drug Use: None General Adult EDM: Chief Complaint: EARACHE/EAR PAIN HPI: HPI: Patient is a 34 year old female who presents to the emergency department with right ear pain. Patient states that she has had approximately 1 day of ear pain on the right without any drainage or discharge. Patient has had some nasal congestion but no fevers or chills. Patient states that she has allergies and has been taking Zofran for relief and is taken ibuprofen for the ear pain. Patient is unable to touch the ear due to pain and has avoided placing anything in the ear canal. Review of Systems: Review of Systems: Review of systems: Constitutional symptoms- No fever, no chills. Eyes- No Discharge, No Visual Loss HEENT-positive right ear pain, nasal congestion, no discharge, no sore throat Respiratory symptoms- No shortness of breath, No wheezing, No Dyspnea on Exertion Cardiovascular Systems; No chest pain, No Palpitations, No syncope Gastrointestinal symptoms: NO abdominal pain, no nausea, no vomiting or diarrhea. Genitourinary symptoms: No dysuria. Musculoskeletal symptoms: No back pain No extremity pain. NEUROLOGICAL Symptoms: No headache, no generalized weakness; No focal Weakness Heart Score: C/O Chest Pain: N/A Risk Factors: Risk Factors: DM, Current or recent (<one month) smoker, HTN, HLP, family history of CAD, obesity. Risk Scores: Score 0 - 3: 2.5% MACE over next 6 weeks - Discharge Home Score 4 - 6: 20.3% MACE over next 6 weeks - Admit for Clinical Observation Score 7 - 10: 72.7% MACE over next 6 weeks - Early Invasive Strategies Allergies: Allergies: Allergies Coded Allergies Type Severity Reaction Last Updated Verified Penicillins Allergy Intermediate tolerates Rocephin 11/28/15 Yes erythromycin base Allergy Intermediate tolerates Zithromax 11/28/15 Yes iodine Allergy Intermediate hives 11/28/15 Yes tramadol Allergy Intermediate hives 11/28/15 Yes Physical Exam: PE: General: alert, no acute distress. Skin: warm, dry and intact. Head:: Normocephalic, atraumatic. Neck: Trachea midline. Eyes: EOMI, Normal conjunctiva, No drainage HEENT: Right ear canal erythema, no purulence or discharge, TM visible with good cone of light no effusion, left TM normal, oropharynx erythema CARDIOVASCULAR: Regular rate and rhythm RESPIRATORY: No respiratory distress Back: Full range of motion. MUSCULOSKELETAL: Full range of motion of bilateral upper and lower extremities. GASTROINTESTINAL: Abdomen soft without rebound or guarding. NEUROLOGICAL: Alert and noted to person, place and time. No neurological deficits observed Psychiatric: Cooperative. Normal judgment EKG: EKG: [] Radiology/Procedures: Radiology/Procedures: [] Course & Med Decision Making: Course & Med Decision Making Pertinent Labs and Imaging studies reviewed. (See chart for details) [] Dragon Disclaimer: Dragon Disclaimer: This electronic medical record was generated, in whole or in part, using a voice recognition dictation system. Departure Departure Impression: Primary Impression: Actinic otitis externa of right ear Disposition: ADMITTED INPATIENT Condition: STABLE Referrals: NO PCP (PCP) Patient Instructions: Otitis Externa Scripts Ciprofloxacin/Hydrocortisone (CIPRO HC OTIC SUSPENSION) 10 Ml Drops.susp 3 DROP BID, #10 ML Prov: FILIBERTO HILL DO 06/16/20 FILIBERTO HILL DO Jun 16, 2020 20:53
[2020-06-16] MEDS ORDERED: CIPR10DR AS (21:07)
== END 2020-06-16 21:18 | disposition home or self-care (01) ==
LOC: ER 20:22
DX: H60.8X1 Other otitis externa, right ear (principal); J45.909 Unspecified asthma, uncomplicated; F17.200 Nicotine dependence, unspecified, uncomplicated; Z90.89 Acquired absence of other organs; Z90.710 Acquired absence of both cervix and uterus; Z98.890 Other specified postprocedural states; Z88.0 Allergy status to penicillin; Z88.1 Allergy status to other antibiotic agents; Z91.041 Radiographic dye allergy status; Z88.8 Allergy status to other drugs, medicaments and biological substances
CPT/HCPCS: 99283